=== PATIENT | male | born 1970 | race Caucasian/White ===

== ENCOUNTER 2017-07-15 13:12 | Emergency (ER) | payer SELFPAY ==
[~2017-07-15] VITALS: Ht 162.6 cm; Wt 71.0 kg
[~2017-07-15 13:12] MED LIST: FERR-89 PO; METF500T4 PO; PANT40TA25 PO
[2017-07-15] MEDS ORDERED: BACITRACIN 0.9 GM PACKET OINTMENT TP ONE (13:45)
[2017-07-15 13:57] LABS: GLUCOSE,POINT OF CARE 157 MG/DL (70-110)
[2017-07-15] MEDS ORDERED: IBUPROFEN 800 MG TABLET PO ONE (14:00)
[2017-07-15] MEDS ORDERED: ACETAMINOPHEN 500 MG TABLET PO ONE (14:00)
[2017-07-15 14:54] VITALS: BP 127/81
== END 2017-07-15 15:39 | disposition home or self-care (01) ==
LOC: EMS 13:14
DX: S46.911A Strain of unspecified muscle, fascia and tendon at shoulder and upper arm level, right arm, initial encounter (principal); S20.212A Contusion of left front wall of thorax, initial encounter; S80.211A Abrasion, right knee, initial encounter; G40.909 Epilepsy, unspecified, not intractable, without status epilepticus; E11.9 Type 2 diabetes mellitus without complications; V09.29XA Pedestrian injured in traffic accident involving other motor vehicles, initial encounter; Y93.89 Activity, other specified; Y92.410 Unspecified street and highway as the place of occurrence of the external cause; Y99.8 Other external cause status
CPT/HCPCS: 82962; 99284